=== PATIENT | female | born 1980 | race Caucasian/White ===

== ENCOUNTER 2021-06-17 11:01 | Outpatient (CLI) | payer OTHER, SELFPAY ==
--- NOTE | 2021-06-17 11:44 | ECG_ITS ---
Measurements Intervals Gray Rate: 81 P: 49 SD: 177 QRS: 39 QRSD: 106 T: 46 QT: 357 QTc: 416 Interpretive Statements SINUS RHYTHM BASELINE ARTIFACT- III, AVF NORMAL ECG Electronically Signed On 06-17-2021 14:40:29 CDT by Antonio Aldridge D.O.
[2021-06-17 12:05] LABS: Basophils Percent Auto 0.4 % (0.2-1.2); Eosinophils Absolute Auto 0.5 K/mm3 (0-0.3); Eosinophils Percent Auto 5.2 % (0-4.4); Hematocrit 42.8 % (37.0-47.0); Immature Granulocyte Absolute 0.02 K/mm3 (0.00-0.031); Immature Granulocyte Percent A 0.2 % (0-0.5); Lymphocytes Absolute Auto 3.11 K/mm3 (0.9-3.2); Lymphocytes Percent Auto 30.3 % (18.3-44.2); Mean Corpuscular HGB Conc 32.7 g/dl (32-36); Mean Corpuscular Hemoglobin 28.1 pg (26-34); Mean Corpuscular Volume 85.8 fl (80-100); Mean Platelet Volume 9.4 fl (7.4-10.4); Monocytes Absolute Auto 0.5 K/mm3 (0.1-0.6); Monocytes Percent Auto 4.9 % (2.6-8.5); Neutrophils Absolute Auto 6.1 K/mm3 (1.3-6.7); Platelet Count Result 394 k/mm3 (150-375); Red Blood Count 4.99 M/mm3 (4.2-5.4); Red Cell Distribution Width 13.2 % (11.5-14.5); White Blood Count 10.3 K/mm3 (4.5-10.0)
== END 2021-06-17 11:02 | disposition home or self-care (01) ==
PROVIDERS: PCP Nurse Practitioner Family; Visit Provider Nurse Practitioner Family
DX: Z01.818 Encounter for other preprocedural examination (principal)
CPT/HCPCS: 36415; 85025; 93005

== ENCOUNTER 2021-08-02 21:24 | Emergency (ER) | payer OTHER, SELFPAY ==
--- NOTE | ~2021-08-02 | XR_ITS ---
EXAMINATION: XR knee RT min 4V DATE: 08/02/2021 22:17 INDICATION: Right knee pain TECHNIQUE: Four views of the right knee were obtained. COMPARISON: None. FINDINGS: Alignment is normal. No fracture or osteochondral lesion. Joint spaces are normal with no e rosions. No joint effusion/synovitis. Soft tissues are unremarkable. IMPRESSION: 1. No acute osseous abnormality. Reviewed, dictated and finalized at location A. CTOR OF COUNSELING
[2021-08-02 21:31] VITALS: BP 114/69; PULSE 82; RESP 18; TEMP 36.6; O2SAT 99
--- NOTE | 2021-08-02 21:50 | PC.NURSE ---
To ED room 2
[2021-08-02 22:10] VITALS: O2SAT 100
--- NOTE | 2021-08-02 22:13 | PC.NURSE ---
Pt ambulatory to ED c/o right leg pain x 1 month. concerned for blood clot. ambulatory c steady, even, unassisted gait.
[2021-08-02 22:15] VITALS: O2SAT 100
[2021-08-02 22:19] LABS: Basophils Absolute Auto 0.1 K/mm3 (0.0-0.1); Basophils Percent Auto 0.6 % (0.2-1.2); Eosinophils Absolute Auto 0.4 K/mm3 (0-0.3); Eosinophils Percent Auto 4.7 % (0-4.4); Hematocrit 44.6 % (37.0-47.0); Hemoglobin 14.6 g/dL (12.0-15.0); Immature Granulocyte Absolute 0.01 K/mm3 (0.00-0.031); Immature Granulocyte Percent A 0.1 % (0-0.5); Lymphocytes Percent Auto 34.1 % (18.3-44.2); Mean Corpuscular HGB Conc 32.7 g/dl (32-36); Mean Corpuscular Volume 85.6 fl (80-100); Mean Platelet Volume 10.2 fl (7.4-10.4); Monocytes Absolute Auto 0.7 K/mm3 (0.1-0.6); Monocytes Percent Auto 7.8 % (2.6-8.5); Neutrophils Absolute Auto 4.8 K/mm3 (1.3-6.7); Neutrophils Percent Auto 52.7 % (45.5-73.1); Platelet Count Result 343 k/mm3 (150-375); Red Blood Count 5.21 M/mm3 (4.2-5.4); Red Cell Distribution Width 13.7 % (11.5-14.5); White Blood Count 9.1 K/mm3 (4.5-10.0)
[2021-08-02 22:22] VITALS: BP 134/86
[2021-08-02 22:36] LABS: Partial Thromboplastin Time 28.8 SECONDS (22.3-36.8)
[2021-08-02 22:38] LABS: D Dimer 0.65 ug/mL (<0.48)
[2021-08-02 22:39] LABS: Anion Gap 11 mmol/L (8-16); Blood Urea Nitrogen 15 mg/dL (7-17); Carbon Dioxide 23 mmol/L (22-30); Chloride 106 mmol/L (98-107); Estimated Glomerular Filt Rate > 60; Glucose 79 mg/dL (65-110); Potassium 3.8 mmol/L (3.4-5.0); Sodium 140 mmol/L (137-145)
--- NOTE | 2021-08-02 22:50 | ED.EXTPRO ---
HPI - Extremity Problem General Chief complaint: Extremity Problem,Nontraumatic Stated complaint: Right leg pain Time Seen by Provider: 08/02/21 21:51 Source: RN notes reviewed History of Present Illness HPI Narrative: Patient presents to emergency department from home for leg pain. Patient states symptoms been ongoing for approximately 1 month she states she had weight loss surgery on 1025 and briefly after that began to have some pain initially in the right lower posterior leg she states that pain then moved up into her right calf and resolved in the lower leg and is now over the right lateral distal thigh she denies any direct trauma or injury she denies any redness she denies any fevers or chills chest pain short of breath numbness or tingling in the extremities back pain or any other symptoms states that she was talking with her family this evening and they convinced her to come in to be ruled out for a blood clot in her leg she denies any history of blood clots Related Data Home Medications Medication Instructions Recorded Confirmed Benadryl 09/24/19 Allergies Allergy/AdvReac Type Severity Reaction Status Date / Time nitrofurantoin Allergy Severe Dyspnea / Verified 08/02/21 22:18 [From Macrobid] SOB Review of Systems Review of Systems: Gen.: Denies fevers or chills ENT: Denies congestion Respiratory: Denies shortness of breath or cough CV: Denies chest pain or palpitations GI: Denies abdominal pain nausea, emesis Musculoskeletal: HPI Neuro: Denies numbness, tingling, weakness or focal weakness Skin: Denies rash Except as documented, all other systems reviewed and negative COUNT INCLUDES [facility] Past Medical History Medical History (Updated 08/02/21 @ 22:54 by Truman Peña DO) Patient denies significant medical history Surgical History Surgical History History of cholecystectomy Social History Social History (Updated 08/02/21 @ 22:52 by Truman Peña DO) Smoking status: Never smoker Exam Narrative: APPEARANCE: No acute distress, nontoxic, resting in bed EYES: EOMI HEENT: Normocephalic, atraumatic, OMM RESPIRATORY: No respiratory distress Back: No midline tenderness patient over the lumbar spine MUSCULOSKELETAl: Moves all extremities. No clubbing, cyanosis or edema. Tender palpation of the right posterior calf and the right lateral distal thigh no swelling ecchymosis or erythema full range of motion of the knee without pain dorsalis pedis pulse 2+ neurovascular intact NEURO: Awake and alert. Following commands, speech normal, no focal deficits SKIN:: Warm, dry. No rashes lesions or abrasions PSYCHIATRIC: Normal affect/mood, Course Course Emergency Course: Discussed Dr. Diop presentation work-up agrees with plan for ultrasound in a.m. Discussed with patient results of workup and diagnosis. Discussed need for follow-up with primary care, proper use of medication, and reasons to return to the emergency department. Patient understands and agrees to current treatment plan discussed with patient need to go to outpatient radiology at 7:30 AM for testing to rule out DVT Vital Signs Vital signs: Vital Signs Temperature 97.8 F 08/02/21 21:31 Pulse Rate 82 08/02/21 21:31 Respiratory Rate 18 08/02/21 21:31 Blood Pressure 114/69 08/02/21 21:31 Pulse Oximetry 99 08/02/21 21:31 Temperature 97.8 F 08/02/21 21:31 Pulse Rate 82 08/02/21 21:31 Respiratory Rate 18 08/02/21 21:31 Blood Pressure 134/86 08/02/21 22:22 Pulse Oximetry 100 08/02/21 22:15 MDM - Extremity (Nontraumatic) Lab Data Result diagrams: 08/02/21 22:10 08/02/21 22:10 Labs: Lab Results 08/02/21 08/02/21 08/02/21 Range/Units 22:10 22:10 22:10 WBC 9.1 (4.5-10.0) K/mm3 RBC 5.21 (4.2-5.4) M/mm3 Hgb 14.6 (12.0-15.0) g/dL Hct 44.6 (37.0-47.0) % MCV 85.6 (80-100) fl MCH 28.0 (26-34)
[2021-08-02] MEDS: ENOXAPARIN 120 MG/0.8 ML SYRINGE 117 MG SUB-Q (23:01)
== END 2021-08-02 23:06 | disposition home or self-care (01) ==
PROVIDERS: Emergency Provider Emergency Medicine; PCP Nurse Practitioner Family
DX: M79.661 Pain in right lower leg (principal); Z98.84 Bariatric surgery status
CPT/HCPCS: 36415; 73564; 80048; 85025; 85380; 85610; 85730; 96372; 99283; J1650

== ENCOUNTER 2021-08-03 07:52 | Outpatient (CLI) | payer OTHER, SELFPAY ==
--- NOTE | ~2021-08-03 | US_ITS ---
EXAMINATION: US venous doppler LE RT DATE: 08/03/2021 08:20 INDICATION: Right lower limb pain TECHNIQUE: Gonzalez scale images without and with compression and Doppler images of the right lower extre mity veins were obtained. COMPARISON: None FINDINGS: The right common femoral vein, profunda femoral vein, femoral vein, popliteal vein, peronea l trunk, posterior tibial veins, and greater saphenous vein are patent. IMPRESSION: 1. Patent right lower extremity veins. No evidence of deep venous thrombosis. Reviewed, dictated and finalized at location A. ACT OPERATOR
== END 2021-08-03 07:53 | disposition home or self-care (01) ==
LOC: ANHIMG 07:57
PROVIDERS: PCP Nurse Practitioner Family; Visit Provider Emergency Medicine
DX: M79.661 Pain in right lower leg (principal)
CPT/HCPCS: 93971

== ENCOUNTER 2021-08-27 17:20 | Emergency (ER) | payer BC, SELFPAY ==
[2021-08-27 17:32] VITALS: BP 116/89; PULSE 96; RESP 16; TEMP 36.9; O2SAT 100
--- NOTE | 2021-08-27 18:12 | ED.FEMALEGU ---
HPI - Female Genitourinary General Chief complaint: Urogenital-Female Stated complaint: UTI Time Seen by Provider: 08/27/21 18:12 Source: patient and RN notes reviewed Mode of arrival: ambulatory Limitations: no limitations History of Present Illness HPI Narrative: 41-year-old female presents with concern for urinary tract infection. She reports 3 day history of suprapubic pressure, strong smelling urine, urine frequency. She denies vaginal discharge, abnormal vaginal bleeding, abdominal pain, nausea, vomiting, diarrhea, fever, body aches. Reports she took Azo last night. MD elicited complaint: UTI Related Data Allergies Allergy/AdvReac Type Severity Reaction Status Date / Time nitrofurantoin Allergy Severe Dyspnea / Verified 08/02/21 22:18 [From Macrobid] SOB Review of Systems Review of Systems: CONSTITUTIONAL: Denies malaise, chills, sweats, or fever. CARDIOVASCULAR: Denies chest pain, palpitations, or edema. RESPIRATORY: Denies cough or dyspnea. GASTROINTESTINAL: Denies abdominal pain, nausea, vomiting, diarrhea GENITOURINARY: Reports dysuria, frequency, urgency, suprapubic pressure. Denies flank pain or hematuria. SKIN: Denies rash or itching. MUSCULOSKELETAL: Denies back pain or myalgia. All systems reviewed & are unremarkable except as noted in HPI and below PMFSH Past Medical History Medical History (Updated 08/27/21 @ 18:20 by Rosa Fisher NP) Patient denies significant medical history Surgical History Surgical History History of cholecystectomy Social History Social History (Updated 08/02/21 @ 22:52 by Truman Peña DO) Smoking status: Never smoker Comments At time of signature, agree with nursing past medical, surgical, social and family history. There is no relevant family history pertinent to the presenting complaint Exam Narrative: GENERAL: Well-appearing, well-nourished, and in no acute distress. HEAD: Normocephalic. EYES: PERRLA, conjunctivae clear. NECK: Supple. No lymphadenopathy CHEST: Clear to auscultation. No respiratory distress. HEART: Regular rate and rhythm. ABDOMEN: Soft, nontender upon palpation, nondistended, normal active bowel sounds, no palpable or pulsatile masses, no guarding. No CVA tenderness SKIN: Warm, dry, no rash. NEURO: Alert and oriented x3. PSYCH: Normal mood and affect Course Course Emergency Course: Patient is aware of diagnosis, understands and agrees to treatment plan. Anticipatory guidance given. Patient agrees to follow-up as directed and is aware of reasons to seek care at the emergency department. Portions of this record may have been created with voice recognition software Vital Signs Vital signs: Vital Signs Temperature 98.4 F 08/27/21 17:32 Pulse Rate 96 08/27/21 17:32 Respiratory Rate 16 08/27/21 17:32 Blood Pressure 116/89 08/27/21 17:32 Pulse Oximetry 100 08/27/21 17:32 Temperature 98.4 F 08/27/21 17:32 Pulse Rate 96 08/27/21 17:32 Respiratory Rate 16 08/27/21 17:32 Blood Pressure 116/89 08/27/21 17:32 Pulse Oximetry 100 08/27/21 17:32 Reviewed. MDM - Female Genitourinary MDM Narrative Medical decision making narrative: Exam findings and UA show no acute concerns or changes; patient is non-toxic appearing and is in no distress. Patient is appropriate for outpatient treatment and follow-up. Differential Diagnosis Differential diagnosis: Likely urinary tract infection and cystitis Lab Data Labs: Urine Glucose Negative Reference Range: Negative Urine Bilirubin 1+ Reference Range: Negative Urine Ketone 1+ Reference Range: Negative Urine Specific Ethel 1.025 Reference Rang
== END 2021-08-27 18:25 | disposition home or self-care (01) ==
PROVIDERS: Emergency Provider Nurse Practitioner; PCP Nurse Practitioner Family
DX: N39.0 Urinary tract infection, site not specified (principal)
CPT/HCPCS: 81003; 87077; 87086; 87088; 87186; 99213; G0463

== ENCOUNTER 2021-10-30 17:38 | Emergency (ER) | payer BC, SELFPAY ==
--- NOTE | ~2021-10-30 | XR_ITS ---
EXAMINATION: XR shoulder LT min 2V EXAM DATE: 10/30/2021 18:05 INDICATION: No Injury,10/14/21pain Clavicle Into Neck,Tingling Down Lt Arm TECHNIQUE: The following left shoulder projections obtained: frontal projection with internal rotatio n, frontal projection with external rotation, Grashey, and scapular Y view (4+ views). There is no p rior study for comparison. FINDINGS: No evidence of left shoulder rotator cuff calcific tendinosis. There is minimal glenohum eral joint, mild acromioclavicular joint primary osteoarthritis. There are no acute fractures or disl ocations identified. There is no subcutaneous gas. The soft tissue is unremarkable. There are no radiopaque foreign bodies. IMPRESSION: Mild osteoarthritis. Reviewed, dictated and finalized at location G. RNATIONAL ORGANIZER IMPRESSION: Mild osteoarthritis.
[2021-10-30 17:46] VITALS: BP 133/93; PULSE 81; RESP 14; TEMP 36.4; O2SAT 99
--- NOTE | 2021-10-30 17:59 | ED.EXTPRO ---
HPI - Extremity Problem General Chief complaint: Extremity Problem,Nontraumatic Stated complaint: Collar bone pain / limited ROM Time Seen by Provider: 10/30/21 17:48 Source: patient Mode of arrival: ambulatory Limitations: no limitations History of Present Illness HPI Narrative: Patient is a 5-year-old female complaining of left shoulder pain, 2 out of 10, worse with palpation and movement, and worse at night especially after a long day at work, started 2 weeks ago. Patient denies any injury to the area. Patient denies any redness or swelling of her left shoulder. Patient denies any chest pain, shortness of breath, nausea, vomiting, diaphoresis, fever or chills Related Data Home Medications Medication Instructions Recorded Confirmed cephalexin 500 mg PO QID 10/30/21 10/30/21 Allergies Allergy/AdvReac Type Severity Reaction Status Date / Time nitrofurantoin Allergy Severe Dyspnea / Verified 10/30/21 17:51 [From Macrobid] SOB Review of Systems Review of Systems: All systems reviewed & are unremarkable except as noted in HPI and below Constitutional: Constitutional: Denies body ache(s), Denies chills, Denies excessive sweating, Denies fatigue, Denies fever(s), Denies headache(s), Denies lethargy, Denies malaise, Denies weakness and Denies weight loss Eyes: Eyes: Denies blurry vision, Denies change in vision and Denies loss of vision ENT: Denies dizziness, Denies ear discharge, Denies headache(s), Denies lip swelling, Denies epistaxis, Denies nasal congestion, Denies neck pain, Denies throat swelling and Denies tongue swelling Cardiovascular: Cardiovascular: Denies chest pain, Denies chest pain at rest, Denies chest pain with activity, Denies diaphoresis, Denies rapid heart rate, Denies edema, Denies irregular heart rhythm, Denies lightheadedness, Denies palpitations, Denies dyspnea and Denies dyspnea on exertion Respiratory: Respiratory: Denies chest congestion, Denies cough, Denies hemoptysis, Denies dyspnea and Denies dyspnea on exertion Gastrointestinal: Gastrointestinal: Denies abdominal pain, Denies melena, Denies hematochezia, Denies diarrhea, Denies nausea, Denies vomiting and Denies hematemesis Musculoskeletal: Musculoskeletal: Denies abnormal gait, Denies neck pain and Denies numbness Neurologic: Denies Abnormal speech present, Denies abnormal gait, Denies confusion, Denies dizziness, Denies headache(s), Denies focal weakness, Denies loss of vision, Denies numbness, Denies Other visual disturbances, Denies Sensory deficit (Neuro) and Denies weakness Psychiatric: Psychiatric: Denies confusion, Denies depression, Denies auditory hallucinations, Denies homicidal ideation and Denies suicidal ideation Endocrine: Endocrine: Denies cold intolerance, Denies excessive sweating, Denies fatigue, Denies heat intolerance and Denies palpitations Hematologic/Lymphatic: Hematologic/Lymphatic: Denies easy bleeding and Denies easy bruising Allergic/Immunologic: Allergic/Immunologic: Denies lip swelling, Denies throat swelling and Denies tongue swelling PMFSH Past Medical History Medical History Patient denies significant medical history Surgical History Surgical History History of cholecystectomy Social History Social History Smoking status: Never smoker Comments Past medical history: None Social history: Non-smoker no EtOH or drug use Exam Const: General: no acute distress and alert Nutritional Appearance: obese Orientation/consciousness: patient oriented x3 HENMT: Head: normal to inspection Eyes: Conjunctivae: conjunctivae normal Neck: Neck: normal visual inspection Other: Negative for vertebral tenderness, full range of motion no pain Resp: Effort & Inspection: normal respiratory effort, not labored and not tachypneic Auscultation: clear
[2021-10-30] MEDS: KETOROLAC 30 MG/ML VIAL (*BKC) IM (19:31)
[2021-10-30] MEDS: CYCLOBENZAPRINE HCL 10 MG TABLET PO (19:31)
[2021-10-30 20:07] VITALS: BP 137/86; PULSE 103; RESP 18; TEMP 36.8; O2SAT 100
[2021-10-30 20:09] VITALS: BP 137/86; PULSE 103; RESP 18; TEMP 36.8; O2SAT 100
== END 2021-10-30 20:10 | disposition home or self-care (01) ==
PROVIDERS: Emergency Provider Emergency Medicine; PCP Nurse Practitioner Family
DX: M19.012 Primary osteoarthritis, left shoulder (principal)
CPT/HCPCS: 73030; 96372; 99283; A9270; J1885

== ENCOUNTER 2021-11-16 11:08 | Outpatient (CLI) | payer BC, SELFPAY ==
[2021-11-16 13:01] LABS: Beta HCG Quantitative 36.01 mIU/ML
== END 2021-11-16 11:09 | disposition home or self-care (01) ==
LOC: ANHLAB 11:10
PROVIDERS: PCP Nurse Practitioner Family; Visit Provider Obstetrics & Gynecology
DX: N93.9 Abnormal uterine and vaginal bleeding, unspecified (principal); Z32.01 Encounter for pregnancy test, result positive
CPT/HCPCS: 36415; 84702

== ENCOUNTER 2021-11-18 19:44 | Emergency (ER) | payer BC, SELFPAY ==
[2021-11-18 19:56] VITALS: BP 136/84; PULSE 85; RESP 16; TEMP 36.6; O2SAT 100
--- NOTE | 2021-11-18 21:08 | ED.GENADULT ---
HPI - General Adult General Chief complaint: Unspecified Stated complaint: possible miscarriage Time Seen by Provider: 11/18/21 20:52 Source: patient History of Present Illness HPI narrative: Patient presents with concerns regarding her miscarriage. Patient barneys she was diagnosed with presently a few weeks ago had a repeat blood test earlier this month and her hormone is still low there was concern for miscarriage. She had a repeat blood test done today and her hCG was downtrending. She was not sure if she should be wearing about retained products of conception or ectopic . Patient reports she feels little bit not like her usual self with some headache she denies any abdominal pain nausea or vomiting. Related Data Home Medications Medication Instructions Recorded Confirmed valacyclovir 500 mg tablet 500 mg PO DAILY 11/13/21 11/13/21 Allergies Allergy/AdvReac Type Severity Reaction Status Date / Time nitrofurantoin Allergy Severe Dyspnea / Verified 11/13/21 16:35 [From Macrobid] SOB Review of Systems Review of Systems: CONSTITUTIONAL: Denies fever, chills, or sweats. EYES: Denies visual changes, redness, or discharge. ENT: Denies rhinorrhea, congestion, sore throat, or otalgia. CARDIOVASCULAR: Denies chest pain, palpitations, or edema. RESPIRATORY: Denies cough or dyspnea. GASTROINTESTINAL: Denies abdominal pain, nausea, vomiting, or diarrhea. GENITOURINARY: Denies dysuria or hematuria. SKIN: Denies rash or itching. MUSCULOSKELETAL: Denies back pain, joint pain, or myalgia. NEUROLOGIC: Denies headache, numbness, dizziness, or weakness. PSYCHIATRIC: Denies anxiety or depression. All systems reviewed & are unremarkable except as noted in HPI and below PMFSH Past Medical History Medical History Patient denies significant medical history Surgical History Surgical History History of cholecystectomy Social History Social History Smoking status: Never smoker Alcohol intake: never Substance use: never Substance use type: does not use Gender identity (if verbalized by the patient): Female Exam Narrative: GENERAL: Well-appearing, well-nourished, and in no acute distress. HEAD: Normocephalic, atraumatic. EYES: PERRLA and EOMI. ENT: Nares clear, no rhinorrhea or epistaxis. Mucous membranes moist. NECK: Supple. No masses. No JVD ABDOMEN: Soft, nontender, nondistended, normal active bowel sounds. EXTREMITIES: Normal range of motion. No edema. SKIN: Warm, dry, no rash. NEURO: No focal deficits. Alert and oriented x3. PSYCH: Normal mood and affect. Course Vital Signs Vital signs: Vital Signs Temperature 36.6 C 11/18/21 19:56 Pulse Rate 85 11/18/21 19:56 Respiratory Rate 16 11/18/21 19:56 Blood Pressure 136/84 11/18/21 19:56 Pulse Oximetry 100 11/18/21 19:56 Temperature 36.6 C 11/18/21 19:56 Pulse Rate 85 11/18/21 19:56 Respiratory Rate 16 11/18/21 19:56 Blood Pressure 136/84 11/18/21 19:56 Pulse Oximetry 100 11/18/21 19:56 Medical Decision Making [facility] Narrative Medical decision making narrative: H&P as above, vss, pt looks clinically well, exam reassuring, labs from earlier today with downtrending hCG, additional labs/img considered, symptomatic relief available as needed, on reevaluation pt continues to looks clinically well. Suspect miscarriage, dns ectopic due to lack of pain, low concern for retained products of conception at this hormone is downtrending. plan to tx/monitor as op w/ pcm f/u findings/plan discussed with pt, pt agree/comfortable with plan, return precautions given Vital Signs Vital Signs: Vital Signs Temperature 36.6 C 11/18/21 19:56 Pulse Rate 85 11/18/21 19:56 Respiratory Rate 16 11/18/21 19:56 Blood Pressure 136/84 11/18/21 19:56 Pulse Oxim
== END 2021-11-18 21:40 | disposition home or self-care (01) ==
PROVIDERS: Emergency Provider Emergency Medicine; PCP Nurse Practitioner Family
DX: O03.9 Complete or unspecified spontaneous abortion without complication (principal)
CPT/HCPCS: 99281

== ENCOUNTER 2021-11-25 16:58 | Outpatient (RCR) | payer BC, SELFPAY ==
[2021-11-14 18:11] LABS: Beta HCG Quantitative 23.02 mIU/ML
[2021-11-18 18:10] LABS: Beta HCG Quantitative 22.19 mIU/ML
[2021-11-25 17:39] LABS: Beta HCG Quantitative 3.58 mIU/ML
== END 2022-02-12 23:59 | disposition home or self-care (01) ==
LOC: ANHLAB 16:58
PROVIDERS: PCP Nurse Practitioner Family; Visit Provider Obstetrics & Gynecology
DX: N93.9 Abnormal uterine and vaginal bleeding, unspecified (principal); Z32.01 Encounter for pregnancy test, result positive
CPT/HCPCS: 36415; 84702; 86900; 86901

== ENCOUNTER → 2022-06-06 11:01 | Outpatient (CLI) | payer BC, SELFPAY ==
--- NOTE | ~2022-06-06 | US_ITS ---
EXAMINATION: US pelvic complete w TV DATE: 06/06/2022 11:28 INDICATION: Abnormal uterine bleeding. Comparison:No prior studies for comparison. TECHNIQUE: Multiple transabdominal and endovaginal sonographic images of the pelvis performed. FINDINGS: The uterus measures 7.4 x 5.6 x 5.4 cm. There is a hypoechoic mass of the uterus consistent with fibroid measuring 3.8 x 3.6 x 3.2 cm. The endometrial complex measures 4 mm. The right ovary measures 2.5 x 1.6 x 2 cm and the left ovary measures 2.3 x 1.5 x 1.5 cm. There are small follicles in each ovary. Normal doppler signal in both ovaries. There is no free fluid in the pelvis. There are no abnormal masses seen on either side. IMPRESSION: 1. Uterine fibroid measuring 3.8 cm maximum dimension. Reviewed, dictated and finalized at location B.
== END ==
PROVIDERS: PCP Registered Nurse School; Visit Provider Registered Nurse School
DX: N93.9 Abnormal uterine and vaginal bleeding, unspecified (principal); D25.9 Leiomyoma of uterus, unspecified
CPT/HCPCS: 76830; 76856

== ENCOUNTER 2022-06-20 08:32 | Outpatient (CLI) | payer BC, SELFPAY ==
[2022-06-20 09:23] LABS: Alanine Aminotransferase 41 U/L (6-35); Albumin Level 4.3 g/dL (3.5-5.1); Alkaline Phosphatase 55 U/L (38-126); Anion Gap 8 mmol/L (8-16); Aspartate Amino Transferase 34 U/L (14-36); Bilirubin,Total 0.8 mg/dL (0.2-1.3); Blood Urea Nitrogen 11 mg/dL (7-17); Carbon Dioxide 24 mmol/L (22-30); Chloride 106 mmol/L (98-107); Cholesterol 192 mg/dL (0-200); Estimated Glomerular Filt Rate > 60; Glucose 81 mg/dL (65-110); HDL Direct 51 mg/dL; Magnesium 1.9 mg/dL (1.6-2.3); Potassium 3.7 mmol/L (3.4-5.0); Sodium 138 mmol/L (137-145); Triglycerides 105 mg/dL (<150)
[2022-06-20 09:34] LABS: LDL Cholesterol Direct 119 mg/dL
[2022-06-20 09:43] LABS: Iron 106 ug/dL (37-170)
[2022-06-20 09:47] LABS: Basophils Absolute Auto 0.1 K/mm3 (0.0-0.1); Basophils Percent Auto 0.8 % (0.2-1.2); Eosinophils Absolute Auto 0.2 K/mm3 (0-0.3); Eosinophils Percent Auto 3.6 % (0-4.4); Hematocrit 42.3 % (37.0-47.0); Hemoglobin 13.8 g/dL (12.0-15.0); Immature Granulocyte Absolute 0.01 K/mm3 (0.00-0.031); Immature Granulocyte Percent A 0.2 % (0-0.5); Lymphocytes Absolute Auto 2.39 K/mm3 (0.9-3.2); Mean Corpuscular HGB Conc 32.6 g/dl (32-36); Mean Corpuscular Hemoglobin 29.6 pg (26-34); Mean Corpuscular Volume 90.6 fl (80-100); Monocytes Absolute Auto 0.3 K/mm3 (0.1-0.6); Monocytes Percent Auto 5.4 % (2.6-8.5); Neutrophils Absolute Auto 3.1 K/mm3 (1.3-6.7); Platelet Count Result 338 k/mm3 (150-375); Red Blood Count 4.67 M/mm3 (4.2-5.4); Red Cell Distribution Width 12.8 % (11.5-14.5); White Blood Count 6.1 K/mm3 (4.5-10.0)
[2022-06-20 09:52] LABS: Percent Iron Saturation 22 % (20-50)
[2022-06-20 10:01] LABS: Free T4 Free Thyroxine 1.31 ng/mL (0.78-2.19)
[2022-06-20 10:20] LABS: Hemoglobin A1C 4.9 % (<5.7)
[2022-06-20 10:29] LABS: Folic Acid 6.8 ng/mL (2.76->20)
== END 2022-06-20 08:33 | disposition home or self-care (01) ==
LOC: ANHLAB 08:35
PROVIDERS: PCP Nurse Practitioner Family; Visit Provider Nurse Practitioner Family
DX: Z98.84 Bariatric surgery status (principal); Z13.0 Encounter for screening for diseases of the blood and blood-forming organs and certain disorders involving the immune mechanism; Z13.1 Encounter for screening for diabetes mellitus; Z13.29 Encounter for screening for other suspected endocrine disorder; Z13.220 Encounter for screening for lipoid disorders
CPT/HCPCS: 36415; 80053; 80061; 82607; 82728; 82746; 83036; 83540; 83550; 83735; 84439; 84443; 85025

== ENCOUNTER 2022-07-04 00:28 | Day surgery (SDC) | payer BC, SELFPAY ==
[2022-06-19 13:34] VITALS: BMI 29.6
--- NOTE | 2022-07-03 10:46 | PM.HPGS ---
History of Present Illness History of Present Illness Consent: Risks, benefits, and alternatives have been discussed and questions answered. Patient agrees to proceed with procedure. Chief complaint: RUQP, constipation Narrative: Joan Kennedy is a 42 year old female Who has had a significant change in bowel habits. She has a bowel movement every 5 days or more and sometimes up to 13 days. This began after her gastric sleeve surgery. She also has had a continuous pain in the right upper quadrant with no findings workup so far. Recent CT scan was done that showed: CT of the abdomen and pelvis with contrast completed that showed normal enhancement of the liver, spleen, adrenal glands and pancreas.? Cholecystectomy.? Normal common bile duct diet diameter.? her right upper quadrant pain has been present for many months. It is constant. It never subsides. She has seen a chiropractor but after several treatments there has been no improvement. Review of Systems Review of Systems: All systems reviewed & are unremarkable except as noted in HPI and below PMFSH Past Medical History Medical History Hepatic steatosis Obesity Patient denies significant medical history Surgical History Surgical History History of cholecystectomy History of sleeve gastrectomy Family History Family History Grandparent Carcinoma of colon Skin cancer Social History Social History Smoking status: Never smoker Alcohol intake: never Substance use: never Substance use type: does not use Gender identity (if verbalized by the patient): Female Spiritual care concerns: No Meds Home Medications and Allergies Home Medications Medication Instructions Recorded Confirmed Type valacyclovir 500 mg tablet 500 mg PO DAILY 11/13/21 06/19/22 History celecoxib 100 mg capsule 100 mg PO DAILY 02/13/22 06/19/22 History alprazolam 0.25 mg tablet 0.25 mg PO BID PRN Anxiety 06/19/22 06/19/22 History norethindrone acetate 1 mg-ethinyl 1 tablet PO DAILY 06/19/22 06/19/22 History estradiol 20 mcg tablet sumatriptan succinate 50 mg tablet 50 mg PO DIRECTED PRN Migraine 06/19/22 06/19/22 History Headache tramadol 50 mg tablet 50 mg PO Q6H PRN Pain 06/19/22 06/19/22 History Allergies Allergy/AdvReac Type Severity Reaction Status Date / Time nitrofurantoin Allergy Severe Dyspnea / Verified 07/04/22 07:02 [From Macrobid] SOB Exam Const: General: alert Orientation/consciousness: patient oriented x3 Resp: Auscultation: clear to auscultation bilaterally Cardio: Rhythm: regular rhythm GI: GI Palp: Yes Soft to palpation and No Tenderness to palpation present (GI) Neuro: General: patient oriented x3 Assessment and Plan Assessment and plan (1) Change in bowel habits: Code(s): R19.4 - Change in bowel habit Status: Acute Assessment and Plan: Colonoscopy with possible biopsy or polypectomy or cautery or injection of substances. (2) Abdominal pain: Code(s): R10.9 - Unspecified abdominal pain Status: Acute Assessment and Plan: EGD with possible biopsy or dilatation or cautery.
[2022-07-04 07:04] VITALS: BP 131/66; PULSE 82; RESP 17; O2SAT 100
[2022-07-04] MEDS: LACTATED RINGERS 1,000 ML 150 ML IV CONT (07:18)
--- NOTE | 2022-07-04 07:30 | P.PNAN_ITS ---
Anes - Initial Pre Proc Eval Procedure: Operation Date: 07/04/22 08:00 Proposed Procedures p Esophagogastroduodenoscopy & Colonoscopy - Yovany Rosen MD Date/Time: 07/04/22 07:30 Surgeon: Yovany Rosen MD Pre Op Diagnosis: RUQP, constipation Patient Data Age: 42 Gender: F Height: 1.69 m Weight: 83.6 kg Last Vital Signs Pulse 82 07/04/22 07:04 Resp 17 07/04/22 07:04 BP 131/66 07/04/22 07:04 Pulse Ox 100 07/04/22 07:04 O2 Del Method Room Air 07/04/22 07:04 Allergies Allergy/AdvReac Type Severity Reaction Status Date / Time nitrofurantoin Allergy Severe Dyspnea / Verified 07/04/22 07:02 [From Macrobid] SOB Home Medications Medication Instructions Recorded Confirmed Type valacyclovir 500 mg tablet 500 mg PO DAILY 11/13/21 07/04/22 History celecoxib 100 mg capsule 100 mg PO DAILY 02/13/22 07/04/22 History alprazolam 0.25 mg tablet 0.25 mg PO BID PRN Anxiety 06/19/22 07/04/22 History norethindrone acetate 1 mg-ethinyl 1 tablet PO DAILY 06/19/22 07/04/22 History estradiol 20 mcg tablet sumatriptan succinate 50 mg tablet 50 mg PO DIRECTED PRN Migraine 06/19/22 07/04/22 History Headache tramadol 50 mg tablet 50 mg PO Q6H PRN Pain 06/19/22 07/04/22 History Patient hx anesthesia problems: none Family hx anesthesia problems: none Results Review: All pre-operative results and documents have been reviewed as part of the pre- operative evaluation. [facility] Past Medical History Medical History Hepatic steatosis Obesity Patient denies significant medical history Surgical History Surgical History History of cholecystectomy History of sleeve gastrectomy Family History Family History Grandparent Carcinoma of colon Skin cancer Social History Social History Smoking status: Never smoker Alcohol intake: never Substance use: never Substance use type: does not use Gender identity (if verbalized by the patient): Female Spiritual care concerns: No Anes - Eval Final PreProcedure Day of Procedure 07/04/22 07:30 Patient weight: normal Heart: regular rate and rhythm Lungs: clear to auscultation Airway: Mallampati scale class II Neurological: alert and oriented Last oral intake: >/= 8 hours ASA classification: II Emergent: no Anesthetic plan: proceed Anesthesia type and monitoring: general GIVS and standard monitoring Results Review: All pre-operative results and documents have been reviewed as part of the pre- operative evaluation. Informed Consent: The patient's anesthetic plan and its attendant risks and benefits were discussed with the patient/family/POA. Questions were solicited and answers provided to the satisfaction of the patient/family/POA.
--- NOTE | 2022-07-04 08:06 | SUR.OPER ---
EGD START: 075; END: 0756. COLONOSCOPY START: 08; END: 08.
[2022-07-04 08:10] VITALS: BP 111/88; PULSE 80; RESP 17; O2SAT 100
[2022-07-04 08:20] VITALS: BP 97/75; PULSE 67; RESP 17; O2SAT 100
[2022-07-04 08:26] VITALS: BP 74/53; PULSE 77; RESP 17; O2SAT 100
== END 2022-07-04 08:37 | disposition home or self-care (01) ==
PROVIDERS: PCP Nurse Practitioner Family; Visit Provider Internal Medicine Gastroenterology
PROC: 0DJ08ZZ Inspection of Upper Intestinal Tract, Via Natural or Artificial Opening Endoscopic (ICD-10-PCS; CPT 43235; principal; 2022-07-04 08:00)
DX: K59.00 Constipation, unspecified (principal); K57.30 Diverticulosis of large intestine without perforation or abscess without bleeding; K21.9 Gastro-esophageal reflux disease without esophagitis; Z98.84 Bariatric surgery status; K76.0 Fatty (change of) liver, not elsewhere classified; E66.9 Obesity, unspecified; Z68.29 Body mass index [BMI] 29.0-29.9, adult
CPT/HCPCS: 45378; 43239; 87081; J2704; J7120

== ENCOUNTER 2023-03-14 16:10 | Emergency (ER) | payer OTHER, SELFPAY ==
--- NOTE | 2023-03-14 16:15 | ED.URI ---
HPI - URI/Sore Throat General Chief Complaint: Ear Stated Complaint: Sinus/Blood In Right Ear Time Seen by Provider: 03/14/23 16:15 Source: patient Mode of arrival: ambulatory Limitations: no limitations History of Present Illness HPI Narrative: Patient is a 42-year-old female who presents with sinus congestion since Thursday. Patient states she was cleaning out her ear today and noticed some blood on Q-tip. Patient states over the last few days she has had increased wax in that ear. Patient states she has seasonal allergies but has not been taking any allergy medication. Patient is also not taken any medications for her symptoms. Denies any fever, chills, cough, shortness of breath, nausea, vomiting, diarrhea, headache. Noted to right great Related Data Home Medications Medication Instructions Recorded Confirmed fluoxetine 40 mg capsule mg 03/14/23 03/14/23 Allergies Allergy/AdvReac Type Severity Reaction Status Date / Time nitrofurantoin Allergy Severe Dyspnea / Verified 03/14/23 16:22 [From Macrobid] SOB Review of Systems Review of Systems: All systems reviewed & are unremarkable except as noted in HPI and below Constitutional: Constitutional: Denies body ache(s), Denies chills, Denies fatigue, Denies fever(s), Denies headache(s), Denies malaise and Denies weakness Eyes: Eyes: Denies blurry vision, Denies itchy eyes and Denies loss of vision ENT: Reports otalgia, Denies headache(s), Reports nasal congestion, Denies sinus pain and Denies sore throat Cardiovascular: Cardiovascular: Denies chest pain, Denies irregular heart rhythm and Denies dyspnea Respiratory: Respiratory: Denies cough and Denies dyspnea Gastrointestinal: Gastrointestinal: Denies abdominal pain, Denies diarrhea, Denies nausea and Denies vomiting Musculoskeletal: Musculoskeletal: Denies back pain, Denies myalgias and Denies arthralgias Integumentary/Breasts: Skin/Breast: Denies pruritus and Denies rash Neurologic: Denies headache(s), Denies loss of vision and Denies weakness Psychiatric: Psychiatric: Reports no additional psychiatric complaints Endocrine: Endocrine: Denies fatigue Allergic/Immunologic: Allergic/Immunologic: Denies itchy eyes PMFSH Past Medical History Medical History Hepatic steatosis Obesity Patient denies significant medical history Surgical History Surgical History History of cholecystectomy History of sleeve gastrectomy Family History Family History Grandparent Carcinoma of colon Skin cancer Social History Social History Smoking status: Never smoker Alcohol intake: never Substance use: never Substance use type: does not use Living arrangements: with family Occupation/Education: occupation Gender identity (if verbalized by the patient): Female Spiritual care concerns: No Comments At time of signature, agree with nursing past medical, surgical, social and family history. There is no relevant family history pertinent to the presenting complaint. Exam Const: General: cooperative, healthy appearing, comfortable, no acute distress and well nourished Nutritional Appearance: well nourished Orientation/consciousness: patient oriented x3 Limitations: no limitations HENMT: Head: normal to inspection, normocephalic and atraumatic Ears: hearing grossly normal bilaterally, external ears normal, TM's normal bilaterally, no periauricular adenopathy and Abnormal EAC present EAC tenderness on the right and other (Scratch noted to right ear canal, no active bleeding) Face/Nose/Sinus: Normal external nose present, Normal nasal mucous membranes and turbinates present, normal facial exam, sinuses nontender and face symmetric Face and sinus: normal facial exam, sinuses nontender and face
[2023-03-14 16:22] VITALS: BP 132/89; PULSE 84; RESP 16; TEMP 36.8; O2SAT 100
[2023-03-14 16:23] VITALS: BP 132/89; PULSE 84; RESP 16; TEMP 36.8; O2SAT 100
== END 2023-03-14 16:40 | disposition home or self-care (01) ==
PROVIDERS: Emergency Provider Nurse Practitioner Family; PCP Nurse Practitioner Family
DX: J01.40 Acute pansinusitis, unspecified (principal); K76.0 Fatty (change of) liver, not elsewhere classified; E66.9 Obesity, unspecified; Z68.30 Body mass index [BMI] 30.0-30.9, adult; Z98.84 Bariatric surgery status
CPT/HCPCS: 99202; G0463

== ENCOUNTER 2024-06-09 07:32 | Outpatient (CLI) | payer OTHER, SELFPAY ==
--- NOTE | ~2024-06-09 | US_ITS ---
Limited ABDOMINAL ULTRASOUND Ordering provider: Sabina Gay APRN History: . R10.11 - Right upper quadrant pain . Comparison: None. FINDINGS: LIVER: Normal size and echotexture. The liver measures 13 cm. No focal hepatic lesions or perihepatic fluid collections are identified. Portal vein flow is normal. GALLBLADDER: Surgically removed. BILIARY DUCTS: No evidence for intra or extrahepatic biliary dilation. Common bile duct measures 2.8 mm in diameter which is within normal limits. PANCREAS: Normal echotexture and size. UPPER ABDOMINAL AORTA: Normal in caliber. IVC: Patent. FREE FLUID: None. IMPRESSION: Status post cholecystectomy. Otherwise, Unremarkable limited ultrasound of the abdomen. Reviewed, dictated and finalized at location A.
== END 2024-06-09 07:33 | disposition home or self-care (01) ==
PROVIDERS: PCP Nurse Practitioner Family; Visit Provider Nurse Practitioner Family
DX: R10.11 Right upper quadrant pain (principal); Z90.49 Acquired absence of other specified parts of digestive tract
CPT/HCPCS: 76705

== ENCOUNTER 2025-04-20 11:01 | Outpatient (CLI) | payer OTHER, SELFPAY ==
--- NOTE | ~2025-04-20 | MMUS_ITS ---
EXAMINATION: MM diagnostic clayton BI w alex, US breast BI complete HISTORY: Follow-up breast asymmetries TECHNIQUE: Additional 3-D tomosynthesis images of the breasts were performed and synthetic 2-D images were generated. CAD analysis was submitted and interpreted. High resolution bilateral complete breas t ultrasound was performed. COMPARISON: 08/06/2015 BREAST PARENCHYMAL COMPOSITION: Not dense: There are scattered areas of fibroglandular density. FINDINGS: MAMMOGRAPHIC FINDINGS: There are no suspicious masses, calcifications or architectural distortion in the right breast to sug gest malignancy. ULTRASOUND: Complete US of all 4 quadrants of the breast/s and retroareolar region was reviewed. Right breast: At 12:00, 2 cm from the nipple there is an oval parallel oriented circumscribed hypoech oic 11 mm mass without internal vascularity. There is posterior acoustic enhancement. At 10:00, 5 cm from the nipple there is an oval parallel oriented hypoechoic mass without posterior features or inte rnal vascularity measuring 6 mm. Left breast: At 1:00, 8 cm from the nipple there is a 3 mm cyst. At 3:00, 8 cm from the nipple there is an intramammary left node measuring 8 mm with normal fatty hilum. At 6:00, 3 cm from the nipple th ere is an oval hypoechoic parallel oriented 5 mm mass without posterior features or internal vascular ity. IMPRESSION: 1. Probable benign bilateral breast masses. 2. Recommend 6 month follow-up limited bilateral breast ultrasound recommended. BI-RADS category 3, probably benign findings. Reviewed, dictated and finalized at location A. IMPRESSION: 1. Probable benign bilateral breast masses. 2. Recommend 6 month follow-up limited bilateral breast ultrasound recommended. BI-RADS category 3, probably benign findings.
--- OUTSIDE RECORDS SUMMARY | 2025-04-20 11:26 | XMS_ITS | Clinical Summary ---
Author Organization [facility] Address [address] [place] [address] Phone Care Team Providers Care Legal Billing Specialist Name Role Phone [facility], External Provider Primary Care Provider U navailable Allergies Active Allergy Reactions Criticality Noted Date Comments Nitrofurantoin Monohyd/M-Cryst Shortness of Breath/Wheezing,Fever High 06/25/2021 Medications escitalopram oxalate (LEXAPRO) 10 mg tablet Take 10 mg by mouth daily. Active cetirizine (ZyrTEC) 10 mg tablet Take 10 mg by mouth daily. Active valACYclovir (VALTREX) 1 gram tablet Take 1,000 mg by mouth 1 time daily as needed. Active SUMAtriptan (IMITREX) 50 mg tablet Take 50 mg by mouth every 2 hours as needed for Headaches. may repeat in 2 hours; max dose 200mg in 24 hours Active HYDROcodone-acet aminophen (HYCET) 7.5-325 mg/15 mL SolutionIndicati ons:Preop testing Take 15 mL by mouth every 6 hours as needed for Severe Pain. Max Daily Amount: 60 mL 300 mL 07/02/2021 11:59 AM CDT 07/01/2021 Active ondansetron (Zofran ODT) 4 mg Tablet, Rapid DissolveIndicati ons:nausea Place 1 Tablet (4 mg) under tongue every 6 hours as needed for Nausea/Vomi ting. 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 07/01/2021 Mild intermittent asthma without complication Gastroesophageal reflux disease without esophagi tis 07/01/2021 Migraines 07/01/2021 Hypercholesteremia 07/01/2021 Immunizations Immunization Administration Dates Next Due (PFIZER)(12 YR UP) COVID-19 VACCINE - EMERGENCY USE AUTHORIZATION, MRNA, [id number]) 30 MCG/0.3 ML IM SUSP 02/18/2021,01/28/2021 Social History Tobacco Use Types Packs/Day Years Used Date Smoking Tobacco: Never Smokeless Tobacco: Never Alcohol Use Standard Drinks/Week Comments Not Currently 0 (1 standard drink = 0.6 oz pur e alcohol) Comments No Sex and Gender Information Value Date Recorded Sex Assigned at Not on file Legal Sex Female 10:36 AM CDT Gender Identity Not on file Sexual Orientation Not on file Last Filed Vital Signs Vital Sign Reading Time Taken Comments Blood Pressure 162/96 07/02/2021 11:44 AM CDT notified nurse Pulse 79 07/02/2021 11:44 AM CDT Temperature 36.8 C (98.2 F) 07/02/2021 11:44 AM CDT Respiratory Rate 18 07/02/2021 11:4 4 AM CDT Oxygen Saturation 98% 07/02/2021 11: 44 AM CDT Inhaled Oxygen Concentration - - Weight 128.5 kg (283 lb 3.2 oz) 07/02/2021 4:40 AM CDT Height 170.2 cm (5' 7) 07/01/2021 12:0 0 PM CDT Body Mass Index 44.36 07/01/2021 12:00 PM CDT Plan of Treatment Health Maintenance Due Date Last Done Comments HPV VACCINES (1 - 3-dose series) 1996 DTAP/TDAP/TD VACCINES (1 - Tdap) 2000 HEPATITIS B VACCINES (1 of 3 - 19+ 3-dose series) 2000 HPV/Cotest (21-29) 2002 CERVICAL CANCER SCREENING 2011 HPV/Cotest (30-65) 2011 PAP SMEAR 2011 BREAST CANCER SCREENING 2021 COVID-19 Vaccine (2023-2 5 season) 2024 02/18/2021, 01/29/2021, 01/28/2021 INFLUENZA VACCINE (#1) 2025 11/09/2020 Medical Devices Implanted Type Area Callisthenics Instructor Device Identifier Shelf Expiration Date Model / Serial / Lot Seamguard Endogia 60 Blk [id number] - [id number] Implanted:Qty : 2 on 07/01/2021 by Iker Mendoza MD at [facility] Biological N/A: Stomach [employer] 03/10/2024 [id number] / / [id number] Seamguard Endogia 60 Prpl [id number] - [id number] Implanted:Qty : 2 on 07/01/2021 by Iker Mendoza MD at [facility] Biological N/A: Stomach [employer] 06/20/2023 [id number] / / [id number] Lt Ankle Hardware Insurance RX [employer] Medicaid RX [employer] (INTERNAL) [facility] Plans MEDICAID [place] Advance Directives For more information, please contact: [phone] * Full Code (Latest Code Status on File) Date Activated Date Inactivated Comments 07/01/2021 7:06 AM 07/02/2021 5:43 PM Care Teams Legal Billing Specialist Relationship Specialty Start Date End Date [facility], External Provider [address] [place] [address] PCP - General 06/24/21
--- OUTSIDE RECORDS SUMMARY | 2025-04-20 11:26 | XMS_ITS | Clinical Summary ---
[facility] Address [address] [place] [id number] Care Team Providers Care Director Of In Service Education Name Role Phone Spring Renteria NP Primary Care Provider [phone] Allergies Active Allergy Reactions Criticality Noted Date Comments Nitrofurantoin Anaphylaxis High 08/26/2023 SOB and high fever Medications al & mag hydroxide with simethicone-dip henhydramine-li docaine (MAGIC MOUTHWASH) suspension 1-1-1 Swish and spit 15 mL every 4 (four) hours as needed (mouth sore) 450 mL 3 Active Additional Information Patient not taking.Reported on 09/02/2023 acetaminophen-c odeine (TYLENOL with CODEINE #3) 300-30 mg per tablet TAKE 1 TABLET BY MOUTH EVERY 6 HOURS NEEDED FOR 7 DAYS 3 Active cetirizine (ZyrTEC) 10 mg chewable tablet Take 1 tablet (10 mg total) by mouth daily Active valACYclovir (VALTREX) 500 mg tablet Take 1 tablet (500 mg total) by mouth 2 (two) times a day as needed 3 Active SUMAtriptan (IMITREX) 50 mg tablet Take 1 tablet (50 mg total) by mouth every 2 (two) hours as needed Active lidocaine 2 % solution Swish and spit 5 ml qid prn sores in mouth 3 Active ALPRAZolam (XANAX) 0.25 mg tablet Take 1 tablet (0.25 mg total) by mouth nightly as needed for anxiety Active hydrOXYzine (ATARAX) 10 mg tablet Take 1 tablet (10 mg total) by mouth daily as needed for anxiety 30 tablet 1 3 Active Active Problems Problem Noted Date Diagnosed Date Anxiety and depression 09/02/2023 Assessment & Plan (09/02/2023 5:18 PM DIRECTOR PATIENT FINANCIAL SERVICES): Chronic, worsening. Patient not interested in starting a daily anxiety/depression medication at this time. Patient provided with information on Wellbutrin. Patient to continue on Xanax 0.25 mg PRN for panic attacks at home. Patient prescribed hydroxyzine 10 mg PRN for increased anxiety or panic attacks at work. Patient provided with list of local counselors and encouraged to schedule an appointment. Patient to follow up in one month. Intractable migraine with aura without status mi grainosus 09/02/2023 Assessment & Plan (09/02/2023 5:16 PM DIRECTOR PATIENT FINANCIAL SERVICES): Chronic, controlled with Excedrin and sumatriptan 50 mg PRN. Follow up in 6 months. Immunizations Immunization Administration Dates Next Due Influenza, Quadrivalent, Jeanette l Culture-based MDCK, Preservative Free, Antibiotic Free, Intramuscular 06/23/2018 Influenza, Quadrivalent, Spl it, Preservative Free, Intramuscular 06/09/2019 Influenza, Unspecified 09/02/2023(Deferr ed: Patient Refused),07/08/2022(Deferred: Patient Refused) Surgical History Surgery Date Site/Laterality Comments FRACTURE SURGERY CHOLECYSTECTOMY BARIATRIC SURGERY Medical History Medical History Date Comments Anxiety Arthritis Depression Migraines Family History Medical History Relation Name Comments Drug abuse Brother Ck COPD Father Dad Diabetes Maternal Grandmother Catrina Arthritis Mother Mom Hypertension Mother Mom Obesity Mother Mom Stroke Mother Mom Heart attack Paternal Grandfather Gpa Cancer Paternal Grandmother Gma Relation Name Status Comments Brother Ck Father Dad Maternal Grandmother Catrina Mother Mom Paternal Grandfather Gpa Paternal Grandmother Gma Social History Tobacco Use Types Packs/Day Years Used Date Smoking Tobacco: Never Smokeless Tobacco: Never AUDIT-C Answer Date Recorded Q1: How often do you have a drink containing alcohol? Never 09/02/2023 Q2: How many drinks containi ng alcohol do you have on a typical day when you are drinking? Patient does not drink 12/27/202 3 Q3: How often do you have si x or more drinks on one occasion? Never 09/02/2023 PHQ-2 Answer Date Recorded PHQ-2 Total Score (If total score is 3 or more points, staff should administer the PHQ-9) 6 09/02/2023 Personal Safety Answer Date Recorded Have you ever been in or are you currently in a harmful physical or emotional relationship or is someone making you feel afraid or unsafe? Denies 08/26/2023 Comments No Sex and Gender Information Value Date Recorded Sex Assigned at Not on file Legal Sex Female 11:43 AM DIRECTOR PATIENT FINANCIAL SERVICES Gender Identity Not on file Sexual Orientation Not on file Obstetrics History Last Filed Vital Signs Vital Sign Reading Time Taken Comments Blood Pressure 120/82 09/02/2023 4:02 PM DIRECTOR PATIENT FINANCIAL SERVICES Pulse 78 09/02/2023 4:02 PM DIRECTOR PATIENT FINANCIAL SERVICES Temperature 36.6 C (97.9 F) 09/02/2023 4:02 PM DIRECTOR PATIENT FINANCIAL SERVICES Respiratory Rate 16 09/02/2023 4:02 PM DIRECTOR PATIENT FINANCIAL SERVICES Oxygen Saturation 99% 09/02/2023 4:02 PM DIRECTOR PATIENT FINANCIAL SERVICES Inhaled Oxygen Concentration - - Weight 99.8 kg (220 lb) 09/02/2023 4:02 PM DIRECTOR PATIENT FINANCIAL SERVICES Height 167.6 cm (5' 6) 09/02/2023 4:02 PM DIRECTOR PATIENT FINANCIAL SERVICES Body Mass Index 35.51 09/02/2023 4:02 PM DIRECTOR PATIENT FINANCIAL SERVICES Plan of Treatment Health Maintenance Due Date Last Done Comments Breast Cancer Screening-Mammogram 1981 Cervical Cancer Screening 1981 Hepatitis C Screening 1981 DTaP/Tdap/Td Vaccine (1 - Tdap) 1992 Varicella Vaccines (1 of 2 - 13+ 2-dose series) 1994 Hepatitis B Screening 1999 Regular Well Visit/Exam 18-64 1999 Pneumococcal vaccine <65 (1 of 2 - PCV) 2000 HPV Vaccines (1 - 3-dose SCDM series) 2008 Covid-19 Vaccine (3 - season) 2024, 01/28/2021 Depression Screening 09/02/2024 09/02/2023, 09/02/20 Influenza Vaccine (#1) 2025 06/09/2019, 2017 Insurance [employer] Care Teams Director Of In Service Education Relationship Specialty Start Date End Date Spring Renteria NP [address] [place] [id number] PCP - General Family Medicine 09/02/23
--- OUTSIDE RECORDS SUMMARY | 2025-04-20 11:26 | XMS_ITS | Clinical Summary ---
Author Organization [facility] Address [address] [place] [address] Care Team Providers Care Pot Runner Name Role Phone Unavailable Primary Care Provider Unavailabl e Source Comments [facility],non-owned Affiliates and Associated Physician Practices is amultiple site organization consisting of ambulatory clinics and hospital sitesin [place], [place], [place] and [place]. This disclosure is being madepursuant to the Care Everywhere program and may not contain all information available regarding this patient. Last updated 18.[facility] Allergies Active Allergy Reactions Criticality Noted Date Comments Nitrofurantoin Shortness of Breath High 02/20/2018 Medications * Be aware that medications may not be up to date on this document. Alwaysverify current medications with the patient. Cetirizine HCl (ZYRTEC ALLERGY PO) Active melatonin 10 MG capsule Take 10 mg by mouth at bedtime Active Omeprazole (PRILOSEC PO) Active albuterol HFA (PROVENTIL;VENT KINGS;PROAIR) 108 (90 BASE) MCG/ACT inhalerIndicati ons:Bronchospas m Inhale 2 puffs by mouth every 4 hours as needed for Cough 1 Inhaler 08/12/2018 Active Social History Tobacco Use Types Packs/Day Years Used Date Smoking Tobacco: Never Smokeless Tobacco: Never Comments No Sex and Gender Information Value Date Recorded Sex Assigned at Not on file Legal Sex Female 6:32 PM LIFE CARE PLANNER Gender Identity Not on file Sexual Orientation Not on file Last Filed Vital Signs Vital Sign Reading Time Taken Comments Blood Pressure 122/84 08/12/2018 6:11 PM LIFE CARE PLANNER Pulse 76 08/12/2018 6:11 PM LIFE CARE PLANNER Temperature 37 C (98.6 F) 08/12/2018 6:11 PM LIFE CARE PLANNER Respiratory Rate 15 08/12/2018 6:11 PM LIFE CARE PLANNER Oxygen Saturation 99% 08/12/2018 6:11 PM LIFE CARE PLANNER Inhaled Oxygen Concentration - - Weight 117.9 kg (260 lb) 08/12/2018 6:11 PM LIFE CARE PLANNER Height 170.2 cm (5' 7) 08/12/2018 6:11 PM LIFE CARE PLANNER Body Mass Index 40.72 08/12/2018 6:11 PM LIFE CARE PLANNER Plan of Treatment Health Maintenance Due Date Last Done Comments LIPID TESTING 1981 MAMMOGRAM 1981 HIV SCREENING 1996 HEPATITIS C SCREENING 06/22/1999 DTAP/TDAP/TD VACCINES (1 - Tdap) 2000 HEPATITIS B VACCINE (1 of 3 - 19+ 3-dose series) 2000 HPV VACCINE (1 - 3-dose SCDM series) 2008 COVID-19 VACCINE (1 - 2023-2 5 season) 2024 DEPRESSION SCREENING 09/07/2024 INFLUENZA VACCINE (#1) 2025 ZOSTER VACCINE (1 of 2) 2031 HIB VACCINE Aged Out No longer eligi ble based on patient's age to complete this topic MENINGOCOCCAL (Group B) VACC INE SHARED DECISION-MAKING Aged Out No longer eligibl e based on patient's age to complete this topic MENINGOCOCCAL GROUPS A/C/Y/W VACCINE Aged Out No longer eligible b ased on patient's age to complete this topic PNEUMOCOCCAL VACCINE Aged Out No long er eligible based on patient's age to complete this topic Insurance [facility] [place] [address]
--- OUTSIDE RECORDS SUMMARY | 2025-04-20 11:26 | XMS_ITS | Clinical Summary ---
Author Organization [facility] Address [facility] [place] [address] Care Team Providers Care Biofuels Production Technician Name Role Phone Sabina Gay [facility] Primary Care Provider + Allergies Active Allergy Reactions Criticality Noted Date Comments Nitrofurantoin Shortness of Breath High 02/09/2022 Medications cetirizine (ZYRTEC) 10 MG chewable tablet Chew 1 tablet (10 mg total) by mouth daily. Active valACYclovir (VALTREX) 1 g tablet Take 1 tablet (1,000 mg total) by mouth daily as needed. Active lidocaine viscous (XYLOCAINE) 2 % solution Swish and spit 5 ml qid prn sores in mouth 100 mL 07/28/2023 Active Social History Tobacco Use Types Packs/Day Years Used Date Smoking Tobacco: Never Smokeless Tobacco: Never Tobacco Cessation:Counseling Given: Not Answered Alcohol Use Standard Drinks/Week Comments Not Currently 0 (1 standard drink = 0.6 oz pur e alcohol) Comments No Sex and Gender Information Value Date Recorded Sex Assigned at Not on file Legal Sex Female 12:39 PM CDT Gender Identity Not on file Sexual Orientation Not on file Last Filed Vital Signs Vital Sign Reading Time Taken Comments Blood Pressure 114/74 08/25/2023 11:13 AM HAND I BLOCKER Pulse 96 08/25/2023 11:13 AM HAND I BLOCKER Temperature 36.2 C (97.1 F) 08/25/2023 11:13 AM HAND I BLOCKER Respiratory Rate 18 08/25/2023 11:13 AM HAND I BLOCKER Oxygen Saturation 100% 08/25/2023 11:13 AM HAND I BLOCKER Inhaled Oxygen Concentration - - Weight 97.5 kg (215 lb) 08/25/2023 11:13 AM HAND I BLOCKER Height 167.6 cm (5' 6) 08/25/2023 11:13 AM HAND I BLOCKER Body Mass Index 34.7 08/25/2023 11:13 AM HAND I BLOCKER Plan of Treatment Health Maintenance Due Date Last Done Comments Cervical Cancer Screening Pa p Smear (Age 30 to 64) Every 3 Years 1981 Annual Physical 1984 Hepatitis C 1999 DTaP, Tdap and Td Vaccines ( 1 - Tdap) 2000 Hepatitis B Vaccines (1 of 3 - 19+ 3-dose series) 2000 HPV Vaccines (1 - 3-dose SCD M series) 2008 Cervical Cancer Screening Pa p with HPV Testing (Age 30 to 64) Every 5 Years 2011 Cervical Cancer Screening wi th HPV 2011 Mammogram Screening 2021 COVID-19 Vaccine (3 - 2023-2 5 season) 2024 02/18/2021, 01/28/2021 Meningococcal B Vaccine Aged Out No l onger eligible based on patient's age to complete this topic Meningococcal Vaccine Aged Out No dory yulisa eligible based on patient's age to complete this topic Pneumococcal Vaccine: Pediatrics (0 to 5 Years) and At-Risk Patients (6 to 49 Years) Aged Out No longer eligible b ased on patient's age to complete this topic RSV Immunizations Under 20 Months Aged Out No longer eligible b ased on patient's age to complete this topic Insurance YESI Care Teams Biofuels Production Technician Relationship Specialty Start Date End Date Sabina Gay, MANUFACTURING WORKER-BC [address] [place] [address] PCP - General NURSE PRACTITIONER 02/09/22
== END 2025-04-20 11:02 | disposition home or self-care (01) ==
LOC: ANHIMG 11:08
PROVIDERS: PCP Nurse Practitioner Family; Visit Provider Nurse Practitioner Family
DX: R92.8 Other abnormal and inconclusive findings on diagnostic imaging of breast (principal); N64.4 Mastodynia
CPT/HCPCS: 76641; 77062; 77066; G0279